=== PATIENT | female | born 1960 | race Caucasian/White ===

== ENCOUNTER 2017-04-16 09:04 | Outpatient (CLI) | payer MEDICARE, MEDICAID ==
[2017-04-16] MEDS ORDERED: Gadobenate Dimeglumine 529 MG/1 ML (20ML VIAL) ONE ×2 (15:28→15:29)
--- NOTE | 2017-04-16 15:53 | MRI ---
EXAM: CERVICAL SPINE MRI WITH AND WITHOUT CONTRAST 04/16/17 HISTORY: Five cervical spine surgeries. Left sided numbness in the arm and leg times several years. COMPARISON: None. TECHNIQUE: Cervical spine MRI is performed without and with intravenous gadolinium administration. Multisequent ial, multiplanar imaging is performed. FINDINGS: There is evidence of cervical fusion hardware at C6 and C7 which causes metallic susceptibility alondra fact. Additional hardware is noted in the right facet at C6 and C7. There is 2 mm of anterolisthesis of C3 upon C4 and 2 mm of retrolisthesis of C4 upon C5. There is appropriate T1 marrow signal inten sity of the cervical vertebrae. Vertebral body height is maintained. No fracture. No significant STI R hyperintensity to suggest ligamentous injury. There is STIR hyperintensity involving the C4 and C5 level likely on the basis of degenerative change. There is questionable associated enhancement. The visualized brain parenchyma, cervicomedullary junction, cervical cord and the upper thoracic cor d have a normal size and signal intensity. Postcontrast images do not demonstrate any abnormal enhancement in the visualized spinal cord and br ain parenchymal structures. Visualized soft tissue neck structures are unremarkable. Cervical carotid and vertebral arterial flow voids are maintained. C2-C3: Subtle disc osteophyte complex abuts the thecal sac. No significant central canal stenosis. N eural foramina are patent bilaterally. C3-C4: No significant disc osteophyte complex. No significant central canal stenosis or foraminal na rrowing. C4-C5: Broad based disc osteophyte complex abuts the thecal sac. Ventral subarachnoid space is maint ained. Mild central canal stenosis. Neural foramina are patent bilaterally. C5-C6: Fusion of the disc space. No significant osteophyte complex. No significant central canal theresa nosis or foraminal narrowing. C6-C7: Fusion of the disc space. No significant osteophyte complex. No significant central canal theresa nosis or foraminal narrowing. T2 hyperintensity in the left foramen likely due to perineural sleeve cyst. C7-T1: No significant disc osteophyte complex. No significant central canal stenosis. Neural foramin a are patent. T1-T2: Left foraminal perineural sleeve cyst is noted. IMPRESSION: 1. Cervical fusion changes as above. 2. No evidence of significant central canal stenosis or foraminal narrowing. 3. Mild edema involving the C3 and C4 levels likely on the basis of degenerative change. POS: [facility]
--- NOTE | 2017-04-16 15:57 | RAD ---
CERVICAL SPINE FOUR VIEWS: History: Neck pain with history of cervical spine surgery. Comparison: 09-18-15 FINDINGS: Exam includes standing flexion and extension lateral views. Fusion changes are noted at C5-6 and C6-7 with metal plate and screws stabilizing C5-6 with anterior facet cages at C5-6. Prominent disc osteophytosis with disc space narrowing and some mild retrolist hesis noted at C4-5. Mild stable anterolisthesis of C7 and T1. No prevertebral soft tissue swelling. IMPRESSION: Generalized spondylosis. Stable post-operative changes. No significant abnormal translation between flexion and extension. POS: [facility]
--- NOTE | 2017-04-16 16:14 | MRI ---
MRI LUMBAR SPINE WITH AND WITHOUT CONTRAST: HISTORY: Left-sided numbness in the arm and leg for several years. Previous lumbar spine surgeries. COMPARISON: 09/27/2015 TECHNIQUE: A lumbar spine MRI is performed with and without intravenous Gadolinium administration. Multisequen tial and multiplanar imaging is performed. FINDINGS: Appropriate T1 marrow signal intensity of the lumbar vertebra. Lumbar spine vertebral body height i s maintained. No fracture. There is T1 hypointensity with associated T2 and STIR hyperintensity al elise the inferior endplate of L3, likely representing type I modic change. Findings have slightly pr ogressed since the previous exam. No evidence of fracture. Symmetric signal intensity of the psoas muscles. Appropriate signal intensity of the visualized mario alberto id organs. The conus medullaris terminates at the superior endplate of L1. Post contrast images do not demonstrate any abnormal enhancement of the vertebral bodies. There is no abnormal enhancement with regard to the cauda equina or conus medullaris. There is no abnormal e nhancement within the thecal sac. T12-L1: Adequate disk hydration. No significant central canal stenosis. The neural foramina are p atent. L1-L2: Adequate disk hydration. No significant central canal stenosis. The neural foramina are pa tent. L2-L3: Adequate disk hydration. No significant central canal stenosis. The neural foramina are pat ent. L3-L4: Adequate disk hydration. No significant central canal stenosis. The neural foramina are pa tent. L4-L5: A metallic cage is in the disk space. No high grade central canal stenosis. The neural for marianne are patent. L5-S1: Adequate disk hydration. There is a subtle T2 and STIR hyperintensity at the left posterior margin of the disk, at the level of the subarticular zone. This small annular fissure is adjacent to the traversing left S1 nerve root. There is no significant stenosis or mass effect. Bilateral s ubarticular zones are unremarkable. The thecal sac is unremarkable. The neural foramina are patent . The peroneal sleeve cyst at S2 is noted. IMPRESSION: 1. Post surgical change at L4-L5. 2. Small annular fissure involving the left subarticular zone at L5-S1. This annular fissure is ad jacent to the traversing left S1 nerve root. No significant associated mass effect. POS: [facility]
--- OUTSIDE RECORDS SUMMARY | 2017-04-17 15:55 | XMS | Clinical Summary ---
:1960 Author Organization [facility] Address [address] [place] [address] Phone Care Team Providers Name Role Phone , Primary Care Provider Unavailable Allergies Not on File Current Medications Not on file Active Problems Not on file Social History Tobacco Use Types Packs/Day Years Used Date Never Assessed Sex Assigned at Date Recorded Not on file Last Filed Vital Signs Not on file Plan of Treatment Not on file Results Not on filefrom Last 3 Months
== END 2017-04-16 09:05 | disposition home or self-care (01) ==
LOC: TBSIIMAG 09:04
PROVIDERS: ATTEND Surgery
DX: Z01.812 Encounter for preprocedural laboratory examination (principal); M54.16 Radiculopathy, lumbar region; M47.22 Other spondylosis with radiculopathy, cervical region; Z98.1 Arthrodesis status
CPT/HCPCS: 72050; 72156; 72158; A9579

== ENCOUNTER 2019-04-07 08:32 | Outpatient (CLI) | payer MEDICARE, OTHER, MEDICAID | END 2019-04-07 08:33 | disposition home or self-care (01) | PROVIDERS: ATTEND Surgery | DX: M50.10 Cervical disc disorder with radiculopathy, unspecified cervical region (principal); R13.10 Dysphagia, unspecified; M48.02 Spinal stenosis, cervical region; M53.3 Sacrococcygeal disorders, not elsewhere classified | CPT/HCPCS: 74230 ==

== ENCOUNTER 2023-05-01 10:52 | Outpatient (CLI) | payer OTHER, MEDICAID | END 2023-05-01 10:53 | disposition home or self-care (01) | LOC: RAD 10:52 | PROVIDERS: ATTEND Internal Medicine | DX: I69.891 Dysphagia following other cerebrovascular disease (principal); R13.10 Dysphagia, unspecified; K21.9 Gastro-esophageal reflux disease without esophagitis; K57.92 Diverticulitis of intestine, part unspecified, without perforation or abscess without bleeding; R19.7 Diarrhea, unspecified | CPT/HCPCS: 74230 ==